=== PATIENT | male | born 1965 | race African-American/Black ===

== ENCOUNTER 2017-03-01 15:49 | Emergency (ER) | payer OTHER ==
[~2017-03-01] VITALS: Ht 160 cm; Wt 69.0 kg
[~2017-03-01 15:49] MED LIST: ACETAMINOPHEN-1 EAC1 PO; AFEDITAB CR30 MG PO; AUGMENTIN 875-1 EACH PO; CARDURA4 MG PO; CHLORTHALIDONE25 MG PO; COREG3.125 MG PO; HYDROCHLOROTHIA25 M2 PO; IMDUR 30 MG TAB30 M1 PO; LIPITOR 20 MG T20 M1 PO; MOBIC15 MG PO; NORVASC5 MG PO; NYAMYC15 GM TOP; OMEPRAZOLE40 MG PO; PLAVIX 75 MG TA75 M1 PO; TOPAMAX50 MG PO; VASOTEC10 MG PO; ZOLOFT25 MG PO
[2017-03-01] MEDS ORDERED: CLEOCIN HCL150 MG PO (16:11)
[2017-03-01] MEDS ORDERED: HYDROCODONE-AP1 EAC6 PO (16:11)
[2017-03-01 16:31] VITALS: BP 189/93
[2017-06-20] MEDS ORDERED: ACETAMINOPHEN-1 EAC1 PO (09:32)
[2017-10-04] MEDS ORDERED: HYDRALAZINE 2525 MG PO (12:35)
[2017-10-04] MEDS ORDERED: NICOTINE TRANSD21 M1 TRANSDERM (12:35)
[2017-10-04] MEDS ORDERED: ASPIR 8181 MG PO (12:36)
[2017-10-04] MEDS ORDERED: AMLODIPINE BESY10 MG PO (12:36)
[2017-10-11] MEDS ORDERED: ACETAMINOPHEN-1 EAC1 PO (21:03)
[2017-10-14] MEDS ORDERED: ASPIRIN325 PO (11:14)
[2017-10-14] MEDS ORDERED: PRINIVIL20 MG PO ×2 (11:15→11:43)
[2017-10-14] MEDS ORDERED: PLAVIX 75 MG TA75 M1 PO (11:42)
[2017-10-14] MEDS ORDERED: LIPITOR 20 MG T20 M1 PO (11:42)
[2017-10-14] MEDS ORDERED: NICOTINE TRANSD21 M1 TRANSDERM (11:42)
[2017-10-14] MEDS ORDERED: COREG3.125 MG PO (11:42)
[2017-10-14] MEDS ORDERED: AMLODIPINE BESY10 MG PO (11:42)
[2017-10-14] MEDS ORDERED: CHLORTHALIDONE25 MG PO (11:43)
[2017-10-14] MEDS ORDERED: ZOLOFT25 MG PO (11:43)
[2017-10-14] MEDS ORDERED: ACETAMINOPHEN-1 EAC1 PO (11:43)
== END 2017-03-01 16:32 | disposition home or self-care (01) ==
LOC: ER 15:49
DX: K04.7 Periapical abscess without sinus (principal); I10 Essential (primary) hypertension; E78.00 Pure hypercholesterolemia, unspecified; F17.210 Nicotine dependence, cigarettes, uncomplicated; Z95.811 Presence of heart assist device

== ENCOUNTER 2018-01-29 13:24 | Emergency (ER) | payer OTHER ==
[~2018-01-29] VITALS: Ht 160 cm; Wt 72.6 kg
--- NOTE | ~2018-01-29 | EKG ---
[place] [address] 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: WG : 1965 Requested By: Ebony Mays Order Number: [id number] MD: Rian Gardner Measurements Intervals [place] Rate: 46 P: 52 TN: 147 QRS: -38 QRSD: 107 T: 251 QT: 536 QTc: 469 Interpretive Statements Sinus bradycardia LVH with secondary repolarization abnormality, similar to prior Baseline wander in lead(s) I,aVL Compared to ECG 10/12/2017 06:58:42 Sinus rhythm no longer present Ventricular premature complex(es) no longer present Left anterior fascicular block no longer present Q waves no longer present Electronically Signed On 01-31-2018 11:07:09 FLOOR REFINISHER by Rian Gardner [email or web address] <ELECTRONICALLY SIGNED> By: Rian Gardner MD 01/31/18 1107 142 142 Rian Gardner MD /EPI
--- NOTE | ~2018-01-29 | HC ---
[facility] [place] [address] CONSULTATION Name: MINDI JONES Room #: DEP NATHANIEL Love#: [id number] Admission: 01/29/18 Attend Phys: Discharge: 01/29/18 Date of : 69 Report #: [id number] THIS REPORT FOR: //name// CC: Jacob Mays DATE OF SERVICE: 01/29/2018 HISTORY OF PRESENT ILLNESS: The patient is a 52-year-old man who came to the Emergency Department with symptoms of an increased left-sided facial droop and extremity weakness and tingling beginning about 2230 last night. The patient had a previous stroke about 7 months ago, which affected his left side and he was seen at that time by Dr. Arrieta. He states that he had a first stroke about a year ago, which only affected his speech temporarily, which resolved; however, the stroke 7 months ago left him with a persisting left facial weakness. He has gone back to work. The patient takes Plavix and Eliquis along with aspirin. An NIH score was 3 with weakness of the face, the left arm and the left leg. PAST MEDICAL HISTORY: The patient's past history is positive for hypertension and migraine as well as cardiac stents x 3. MEDICATIONS: Include amlodipine, Plavix, atorvastatin, carvedilol, lisinopril, codeine No. 3, sertraline, chlorthalidone. The chart indicates Eliquis, but I am not sure if that is correct. ALLERGIES: No known allergies. SOCIAL HISTORY: The patient uses cigarettes, but does not use alcohol. REVIEW OF SYSTEMS: The patient denies blurred vision, but states that he does have spots in front of his eyes. He is denying a headache at the present time, but states that he did have headache earlier. He denies chest pain. Denies runny nose or sore throat. Denies abdominal pain. Denies dysuria or hematuria. Denies joint pain. Denies rash. He states that he is under a lot of stress and is having sleep deprivation regarding his job. PHYSICAL EXAMINATION: VITAL SIGNS: Blood pressure 158/80, temperature 36.7, pulse 57. GENERAL APPEARANCE: On physical examination, the patient is a well-developed, well-nourished man, very pleasant and cooperative. NECK: Supple. EXTREMITIES: No pedal edema is noted. [address] [address] CONSULTATION Name: MINDI JONES Room #: DEP NATHANIEL Love#: [id number] Admission: 01/29/18 Attend Phys: Discharge: 01/29/18 Date of : 69 Report #: [id number] NEUROLOGIC: He is alert and oriented with normal memory. His speech is slightly dysarthric. He does speak with a [place] accent. He was born [place]. On cranial nerve testing, the pupils are equally round and reactive. Extraocular movements are full without nystagmus. Visual velasquez are full to confrontation. Facial sensation showed mild decreased appreciation to pin on the left forehead and chin was equal. On motor testing, the patient does have weakness of his lower face with flattened nasolabial fold and decreased excursion of the mouth. Tongue was normal. Motor testing reveals full power in his arms and legs. I could not detect any pronator drift. I could not detect any weakness of his arms distally or proximally or his legs distally or proximally. Sensation was intact to pin and vibration. Coordination testing revealed mildly clumsy rapid alternating movement test with his left hand. Sowgxw-hs-mbnw was done well. Kkem-fs-mniq was done well. Reflexes were 2+ and equal from side to side. The toes were downgoing. The gait was normal. The patient did have some mild difficulty with omoi-qn-hcew. The patient does have metal in his mandible after an accident at age 13 and he does not remember ever having an MRI scan. He believes that is because of the metal in his face. CT scan showed no acute changes. CT angiogram likewise showed no changes. The patient's weakness has resolved in the left-sided limbs. He does have persisting weakness of the face, which was equal to what it was before. With negative CT and CTA, it is felt that he did not have a new stroke, but rather that this is a recrudescence of his previous findings. The patient had no shaking of the limb or other symptoms that might suggest a focal seizure. I recommended that he take 2 days off from work and for him to return to the Emergency Department if he has any further neurologic issues. An EEG might be done if he does have further episodes to check for post-stroke focal seizure activity. By: 1725 [id number] Claudio Rajan MD /nt
[~2018-01-29 13:24] MED LIST changes: +AMLODIPINE BESY10 MG PO; +ASPIR 8181 MG PO; +ASPIRIN325 PO; +CLEOCIN HCL150 MG PO; +HYDRALAZINE 2525 MG PO; +HYDROCODONE-AP1 EAC6 PO; +NICOTINE TRANSD21 M1 TRANSDERM; +PRINIVIL20 MG PO
[2018-01-29 13:44] VITALS: BP 158/80
[2018-01-29 14:00] LABS: ABSOLUTE NEUTROPHILS 6.4 thou/uL (1.4-8.2); BASOPHILS 0.3 % (0.0-2.0); EOSINOPHILS 7.2 % (0.0-3.0); HEMATOCRIT 39.8 % (42.0-52.0); LYMPHOCYTES 25.3 % (24.0-44.0); MCHC 35.2 g/dL (28.0-37.0); MCV 85.4 fL (80.0-100.0); MONOCYTES 6.1 % (1.0-8.0); PLATELET COUNT 232 thou/uL (150-400); POLYS 61.1 % (36.0-66.0); RBC 4.66 mil/uL (4.50-6.00); RDW 13.9 % (10.5-14.5); WBC 10.4 thou/uL (4.0-11.0)
[2018-01-29 14:09] LABS: CALCIUM 8.7 mg/dL (8.5-10.1); CREATININE 1.1 mg/dL (0.7-1.3); POTASSIUM 3.4 mmol/L (3.5-5.1)
[2018-01-29 14:13] LABS: APTT 32.4 Seconds (24.5-32.8)
[2018-01-29 16:20] LABS: URINE BILIRUBIN NEGATIVE (Negative); URINE BLOOD 3+ (Negative); URINE CLARITY CLEAR; URINE COLOR YELLOW; URINE GLUCOSE-RANDOM* NEGATIVE (Negative); URINE KETONES NEGATIVE (Negative); URINE LEUKOCYTES NEGATIVE (Negative); URINE NITRITE NEGATIVE (Negative); URINE PROTEIN (DIPSTICK) NEGATIVE (Negative); URINE SPECIFIC GRAVITY <= 1.005 (1.005-1.035); URINE UROBILINOGEN 0.2 E.U./dl (0.2-1.0)
[2018-01-29 16:32] LABS: CASTS None Seen /LPF (None Seen); SQUAMOUS None Seen /LPF (0-3)
[2018-01-29 16:33] LABS: BACTERIA None Seen /HPF (None Seen); CRYSTALS None Seen /LPF (None Seen); URINE WBC 0-5 Rare /HPF (0-5)
[2018-01-30 01:38] LABS: POC CA IONIZED 4.8 mg/dL (4.5-5.3); POC CREATININE 1.1 mg/dL (0.6-1.3); POC HEMOGLOBIN 13.9 g/dL (14.0-18.0); POC POTASSIUM 3.6 mmol/L (3.5-5.1)
== END 2018-01-29 17:00 | disposition home or self-care (01) ==
LOC: ER 13:24
PROVIDERS: Student in an Organized Health Care Education/Training Program
DX: R53.1 Weakness (principal); R31.29 Other microscopic hematuria; F17.210 Nicotine dependence, cigarettes, uncomplicated; I10 Essential (primary) hypertension; G43.909 Migraine, unspecified, not intractable, without status migrainosus; Z95.5 Presence of coronary angioplasty implant and graft; Z86.73 Personal history of transient ischemic attack (TIA), and cerebral infarction without residual deficits

== ENCOUNTER 2018-07-10 08:06 | Emergency (ER) | payer OTHER ==
[~2018-07-10] VITALS: Ht 160 cm; Wt 69.4 kg
[2018-07-10 08:57] LABS: ABSOLUTE NEUTROPHILS 4.7 thou/uL (1.4-8.2); BASOPHILS 0.3 % (0.0-2.0); EOSINOPHILS 6.6 % (0.0-3.0); HEMATOCRIT 36.9 % (42.0-52.0); HEMOGLOBIN 12.6 gm/dL (14.0-18.0); LYMPHOCYTES 26.5 % (24.0-44.0); MCH 28.7 pg (26.0-34.0); MCHC 34.1 g/dL (28.0-37.0); MCV 84.3 fL (80.0-100.0); MONOCYTES 5.8 % (1.0-8.0); PLATELET COUNT 199 thou/uL (150-400); POLYS 60.8 % (36.0-66.0); RBC 4.38 mil/uL (4.50-6.00); RDW 13.3 % (10.5-14.5); WBC 7.7 thou/uL (4.0-11.0)
[2018-07-10 09:07] LABS: ANION GAP 10 mmol/L (7-16); BUN 14 mg/dL (7-18); CALCIUM 9.1 mg/dL (8.5-10.1); CHLORIDE 101 mmol/L (98-107); CO2 28 mmol/L (21-32); GLUCOSE 153 mg/dL (74-106); POTASSIUM 3.5 mmol/L (3.5-5.1); SODIUM 139 mmol/L (136-145)
[2018-07-10 09:17] LABS: ALBUMIN 3.4 g/dL (3.4-5.0); MAGNESIUM 1.7 mg/dL (1.8-2.4); SGOT 23 U/L (15-37); SGPT 29 U/L (30-65); TOTAL BILIRUBIN 0.4 mg/dL (<0.1-1.0); TOTAL PROTEIN 7.2 g/dL (6.4-8.2); TROPONIN-I <0.06 ng/mL (<0.06)
[2018-07-10 09:43] VITALS: BP 195/101
[2018-07-10 09:47] LABS: URINE BILIRUBIN NEGATIVE (Negative); URINE BLOOD 3+ (Negative); URINE CLARITY CLEAR; URINE COLOR YELLOW; URINE GLUCOSE-RANDOM* NEGATIVE (Negative); URINE KETONES NEGATIVE (Negative); URINE LEUKOCYTES NEGATIVE (Negative); URINE NITRITE NEGATIVE (Negative); URINE PROTEIN (DIPSTICK) 2+ (Negative); URINE SPECIFIC GRAVITY 1.025 (1.005-1.035); URINE UROBILINOGEN 0.2 E.U./dl (0.2-1.0)
[2018-07-10 09:55] LABS: BACTERIA None Seen /HPF (None Seen); CASTS None Seen /LPF (None Seen); CRYSTALS None Seen /LPF (None Seen); SQUAMOUS 0-3 Few /LPF (0-3)
[2018-07-10 09:56] LABS: URINE WBC 0-5 Rare /HPF (0-5)
--- NOTE | 2018-07-11 08:45 | EKG ---
[facility] [place] [address] ELECTROCARDIOGRAM REPORT Name: MINDI JONES Room #: NITISH Love#: [id number] ������������������ Admission: 07/10/18 ������������������ Attend Phys: Discharge: 07/10/18 ������������������ Date of : 69 Report #: [id number] ����������������������������������������������������������������� [id number] THIS REPORT FOR: //name// [facility] ED Test Date: 2018-07-10 Test Time: 08:35:10 Pat Name: MINDI JONES Department: Room: Gender: M Manager E Learning: phil martinez : 1965 Requested By: Fuentes Ovalle Order Number: [id number] MD: iRan Gardner Measurements Intervals [place] Rate: 56 P: 35 [place]: 140 QRS: -32 QRSD: 110 T: 243 QT: 483 QTc: 467 Interpretive Statements Sinus rhythm Multiple premature complexes, vent & supraven LVH with IVCD and secondary repol abnrm Anterior ST elevation, probably due to LVH Compared to ECG 01/29/2018 14:22:55 Electronically Signed On 07-11-2018 8:44:52 CDT by Rian Gardner [email or web address] ��������������������������������������������� <ELECTRONICALLY SIGNED> ���������������������������������������� By: Rian Gardner MD ��������������������������������������������� 07/11/18 0844 Rian Gardner MD /EPI
== END 2018-07-10 09:44 | disposition home or self-care (01) ==
LOC: ER 08:06
PROVIDERS: Emergency Medicine
DX: I10 Essential (primary) hypertension (principal); G43.909 Migraine, unspecified, not intractable, without status migrainosus; F17.210 Nicotine dependence, cigarettes, uncomplicated; Z86.73 Personal history of transient ischemic attack (TIA), and cerebral infarction without residual deficits; Z95.5 Presence of coronary angioplasty implant and graft

== ENCOUNTER 2018-09-25 07:57 | Emergency (ER) | payer OTHER ==
[~2018-09-25] VITALS: Ht 160 cm; Wt 68.0 kg
[2018-09-25 08:39] LABS: ABSOLUTE NEUTROPHILS 4.4 thou/uL (1.4-8.2); BASOPHILS 0.5 % (0.0-2.0); EOSINOPHILS 6.1 % (0.0-3.0); HEMATOCRIT 38.3 % (42.0-52.0); LYMPHOCYTES 28.2 % (24.0-44.0); MCH 28.2 pg (26.0-34.0); MCHC 33.9 g/dL (28.0-37.0); MCV 83.3 fL (80.0-100.0); PLATELET COUNT 228 thou/uL (150-400); POLYS 59.2 % (36.0-66.0); WBC 7.5 thou/uL (4.0-11.0)
[2018-09-25 08:41] LABS: CALCIUM 9.3 mg/dL (8.5-10.1); CREATININE 1.1 mg/dL (0.7-1.3); POTASSIUM 3.6 mmol/L (3.5-5.1)
[2018-09-25 08:49] LABS: TROPONIN-I 0.07 ng/mL (<0.06)
--- NOTE | 2018-09-25 10:55 | EKG ---
[facility] [place] [address] ELECTROCARDIOGRAM REPORT Name: MINDI JONES Room #: REG NATHANIEL Love#: [id number] Admission: 09/25/18 Attend Phys: Discharge: Date of : 69 Report #: [id number] THIS REPORT FOR: //name// [facility] ED Test Date: 2018-09-25 Test Time: 08:04:29 Pat Name: MINDI JONES Department: Room: Gender: M Trawl Net Maker: HELADIO : 1965 Requested By: Latanya Garcia Order Number: [id number] MD: Dayton Singh Measurements Intervals [place] Rate: 56 P: 41 [place]: 141 QRS: -39 QRSD: 108 T: 247 QT: 480 QTc: 464 Interpretive Statements Sinus rhythm Atrial premature complex LVH with secondary repolarization abnormality Anterior Q waves, possibly due to LVH Compared to ECG 07/10/2018 08:35:10 Atrial premature complex(es) now present premature ventricular complexes are no longer present Electronically Signed On 09-25-2018 10:54:56 CDT by Dayton Singh [email or web address] <ELECTRONICALLY SIGNED> By: Dayton Singh MD, [facility] 09/25/18 1054 0804 0804 Dayton Singh MD, [facility] /EPI
[2018-09-25 12:01] VITALS: BP 182/93
== END 2018-09-25 12:08 | disposition home or self-care (01) ==
LOC: ER 07:57
PROVIDERS: Emergency Medicine
DX: R07.89 Other chest pain (principal); I10 Essential (primary) hypertension; G43.909 Migraine, unspecified, not intractable, without status migrainosus; F17.210 Nicotine dependence, cigarettes, uncomplicated; Z86.73 Personal history of transient ischemic attack (TIA), and cerebral infarction without residual deficits; Z95.2 Presence of prosthetic heart valve

== ENCOUNTER 2018-12-02 17:56 | Inpatient (IN) | payer OTHER ==
[~2018-12-02] VITALS: Ht 160 cm; Wt 65.3 kg
[2018-12-02 18:37] LABS: ABSOLUTE NEUTROPHILS 6.9 thou/uL (1.4-8.2); BASOPHILS 0.4 % (0.0-2.0); EOSINOPHILS 1.9 % (0.0-3.0); HEMATOCRIT 39.7 % (42.0-52.0); HEMOGLOBIN 13.6 gm/dL (14.0-18.0); LYMPHOCYTES 21.8 % (24.0-44.0); MCH 28.3 pg (26.0-34.0); MCHC 34.1 g/dL (28.0-37.0); MCV 82.8 fL (80.0-100.0); PLATELET COUNT 213 thou/uL (150-400); POLYS 69.9 % (36.0-66.0); RDW 14.7 % (10.5-14.5); WBC 9.9 thou/uL (4.0-11.0)
[2018-12-02 18:41] LABS: CALCIUM 8.9 mg/dL (8.5-10.1); POTASSIUM 3.2 mmol/L (3.5-5.1)
[2018-12-02 18:49] LABS: TROPONIN-I 0.09 ng/mL (<0.06)
[2018-12-02 22:19] VITALS: BP 191/103
[2018-12-02 23:13] VITALS: BP 174/95
[2018-12-03 01:01] VITALS: BP 169/126
[2018-12-03 03:29] VITALS: BP 174/85
--- NOTE | 2018-12-03 05:27 | NUR ---
PT ARRIVED FROM ER AROUND 11PM LAST NIGHT. PT IS A&0X4. VSS EXCEPT BP WHICH WAS ELEVATED AT 190/103. ADMISSION ASSESSMENTS DONE, DR LAWS NOTIFIED ABOUT BP AND REQUEST FOR ADMISSION ORDERS. ONETIME ORDER OF CLONIIDINE WAS GIVEN FOR BP, SAID HE WOULD SEE PT IN THE AM SINCE HE WAS STABLE. PT COMPLAINED OF HEADACHE, TYELENOL GIVEN. PT IS SB WITH SLEEP; JAYESH 40S BEING THE MINIMUM. PT STATED THE BREATHING TX HE GOT IN THE ER MADE HIM FEEL A WHOLE LOT BETTER AND WOULD LIKE IF HE COULD BE D/C WITH SOME. PT DENIES CHEST PAIN JUST STATED CHEST TIGHTNESS. PT DENIED HAVING ADVANCE DIRECTIVES&DPOA; CASE MANAGEMENT CONSULTED. PT IS STABLE, BP IS TRENDING DOWN. WILL CONTINUE TO MONITOR PER POC.
[2018-12-03 08:08] VITALS: BP 178/23
--- NOTE | 2018-12-03 11:06 | EKG ---
[place] [address] [address] [place] [address] ELECTROCARDIOGRAM REPORT Name: MINDI JONES Room #: 212-P ADM IN M.R.#: [id number] Admission: 12/02/18 Attend Phys: Jacob Sow MD Discharge: Date of : 69 Report #: [id number] THIS REPORT FOR: //name// [facility] ED Test Date: 2018-12-02 Test Time: 18:05:30 Pat Name: MINDI JONES Department: Room: 212 Gender: M Video Manager: GUADALUPE : 1965 Requested By: Latanya Garcia Order Number: [id number] MD: Dayton Singh Measurements Intervals [place] Rate: 72 P: 36 OR: 156 QRS: -45 QRSD: 101 T: 220 QT: 470 QTc: 515 Interpretive Statements Sinus rhythm Left anterior hemiblock Poor R wave progression T-wave abnormality, consider ischemia Compared to ECG 09/25/2018 08:04:29 No significant change was found Electronically Signed On 12-03-2018 11:06:46 CDT by Dayton Singh [email or web address] <ELECTRONICALLY SIGNED> By: Dayton Singh MD, [facility] 12/03/18 1106 180 04 Dayton Singh MD, [facility] /EPI
[2018-12-03 16:16] VITALS: BP 186/135
[2018-12-03 18:45] VITALS: BP 168/108
--- NOTE | 2018-12-03 19:56 | NUR ---
ASSUMMED PT CARE AT APPROXIMATELY 0700. PT A&O X4. ASSESSMENT CHARTED. FALL PRECAUTIONS IN PLACE. PT DENIES HAVING CHEST PAIN. PT STATES HE HAS ACUTE PAIN. PT RECEIVED ANALGESICS FOR PAIN. PT STATED ANALGESICS HELPED RELIEVE PAIN. PT STATES HE HAS BEEN SOB ON EXERSION. PT'S O2 SAT STABLE. PT'S BP ELEVATED. PT'S K+ LOW. NOTIFIED FOR BP AND K+. STARTED MEDS FOR ELEVATED BP AND K+. BP DECREASED AFTER BP MEDS GIVEN. VITAL SIGNS STABLE. PT AMBULATES AD DESHAWN AND IS STEADY. PT EDUCATED ABOUT POC. PT STATED UNDERSTANDING AND DENIED HAVING FURTHER QUESTIONS AND CONCERNS. PT COMFORTABLE IN BED.
[2018-12-03 20:10] VITALS: BP 180/106
[2018-12-04 00:24] VITALS: BP 170/102
[2018-12-04 03:11] LABS: GLYCOHEMOGLOBIN (HGB A1C) 5.7 % (4.8-5.6)
[2018-12-04 04:45] VITALS: BP 155/98
[2018-12-04 05:00] LABS: CALCIUM 8.7 mg/dL (8.5-10.1); CREATININE 1.2 mg/dL (0.7-1.3); POTASSIUM 4.1 mmol/L (3.5-5.1)
--- NOTE | 2018-12-04 05:27 | NUR ---
ASSUMED PT CARE AT 1900. PT IS ALERT AND ORIENTED. NO SIGN OF DISTRESS NOTED. NO FAMILY AT BEDSIDE. ASSESSMENT COMPLETED AND CHARTED. DENIED AND. VITAL SIGNS STABLE WITH THE EXCEPTION OF ELEVATION OF BLOOD PRESSURE. SCHEDULED MEDS ADMINISTERED TO PT. DENIES ANY OTHER NEEDS AT THIS TIME.
[2018-12-04 07:14] VITALS: BP 173/109
--- NOTE | 2018-12-04 11:43 | 2DMMODE ---
[facility] [address] [place] [address] 2 D/M-MODE ECHOCARDIOGRAM Name: MINDI JONES Room #: 212-P ADM IN M.R.#: [id number] Admission: 12/02/18 Attend Phys: Gale Johnson Discharge: Date of : 69 Report #: [id number] THIS REPORT FOR: //name// APPROVED REPORT Study performed: 12/03/2018 12:02:18 EXAM: Comprehensive 2D, Doppler, and color-flow Echocardiogram Patient Location: In-Patient Room #: 212 Status: routine BSA: 1.75 HR: 64 bpm Rhythm: NSR Other Information Study Quality: Good Risk Factors: Cardiac Risk Factors: Hyperlipidemia, HTN Indications CAD Chest Pain Echo Enhancing Agent Indication: Endocardial border delineation Agent(s) / Amount(s) Used: Optison 2 cc 2D Dimensions LVEF(%): 26.00 (>50%) IVSd: 1.20 (7-11mm) LVOT Diam: 2.20 (18-24mm) PWd: 1.20 (7-11mm) Ascending Ao: 3.30 (22-36mm) LVDs: 4.70 (25-40mm) Left Ventricle Left ventricle is mildly dilated. There is global hypokinesis of the left ventricle. Mild concentric left ventricular hypertrophy. Left ventricular ejection fraction is severely decreased. LVEF is 25-30%. Severe diastolic dysfunction is present (restrictive filling). Right Ventricle The right ventricle is normal size. The right ventricular systolic function is normal. [facility] [address] [place] [address] 2 D/M-MODE ECHOCARDIOGRAM Name: MINDI JONES Room #: 212-P ADM IN M.R.#: [id number] Admission: 12/02/18 Attend Phys: Gale Johnson Discharge: Date of : 69 Report #: [id number] Atria Left atrium is moderately dilated. Right atrium is mildly dilated. Aortic Valve The aortic valve is normal in structure. Trace to mild aortic regurgitation. There is no aortic valvular stenosis. Mitral Valve The mitral valve is normal in structure. There is no mitral valve regurgitation noted. Tricuspid Valve The tricuspid valve is normal in structure. There is no tricuspid valve regurgitation noted. Pulmonic Valve The pulmonary valve is normal in structure. Mild pulmonic regurgitation. Great Vessels The aortic root is normal in size. The ascending aorta is normal in size. IVC is normal in size and collapses >50% with inspiration. Pericardium There is no pericardial effusion. Critical Notification Critical Value: No <Conclusion> Left ventricular ejection fraction is severely decreased. LVEF is 25-30%. Severe diastolic dysfunction Left atrium is moderately dilated. The aortic valve is normal in structure. Trace to mild aortic regurgitation, no stenosis. The mitral valve is normal in structure. No mitral valve regurgitation Pulmonary artery pressure could not be ascertained. There is no pericardial effusion. <ELECTRONICALLY SIGNED> By: Dayton Singh MD, FACC 12/04/18 1143 1143 1143 Dayton Singh MD, FACC /INF
--- NOTE | 2018-12-04 11:52 | EKG ---
[address] [employer] [place] [address] ELECTROCARDIOGRAM REPORT Name: MINDI JONES Room #: 212-P ADM IN M.R.#: [id number] Admission: 12/02/18 Attend Phys: Jacob Sow MD Discharge: Date of : 69 Report #: [id number] THIS REPORT FOR: //name// [facility] Test Date: 2018-12-04 Test Time: 07:09:37 Pat Name: MINDI JONES Department: Room: 212 P Gender: M Fixed Income Manager: Zuhair LEIVA : 1965 Requested By: Dayton Singh Order Number: [id number] MD: Dayton Singh Measurements Intervals [place] Rate: 46 P: 40 [place]: 143 QRS: -40 QRSD: 104 T: 269 QT: 539 QTc: 472 Interpretive Statements Sinus bradycardia Left anterior fascicular block LVH with secondary repolarization abnormality Anteroseptal infarct, old Compared to ECG 12/02/2018 18:05:30 No significant change was found Electronically Signed On 12-04-2018 11:51:50 CDT by Dayton Singh [email or web address] <ELECTRONICALLY SIGNED> By: Dayton Singh MD, [facility] 12/04/18 1151 0709 0709 Dayton Singh MD, [facility] /EPI
[2018-12-04 11:53] VITALS: BP 166/114
[2018-12-04 15:57] VITALS: BP 177/123
--- NOTE | 2018-12-04 17:25 | NUR ---
ASSUMED CARE AT SHIFT CHANGE, ALERT AND ORIENTED X4. C/O HEADACHE AND REFUSED TYLENOL. SA AND BRADYCARDIA 38-62/ MIN, BP ELEVATED THROUGH OUT THE SHIFT, MEDICATED PER SCHEDULED MEDS AND DR FORREST ALBERTS, AND WAITING FOR A CALL BACK.
[2018-12-04 20:15] VITALS: BP 172/99
[2018-12-05] VITALS (10 sets, daily range): BP systolic 152–181; BP diastolic 93–119
--- NOTE | 2018-12-05 05:27 | NUR ---
ASSUMED PT CARE AT 1900. NO SIGN OF DISTRESS NOTED IN PT. PT IS ALERT AND AND ORIENTED, DENIES ANY PAIN. VITAL SIGNS STABLE WITH THE EXCEPRION OF ELEVATED BLOOD PRESSURE. PHYSICIAN NOTIFIED. BP MEDS AADMINISTERED TO PT. PT IS NPO. PT IS SCHEDULED FOR A HEART CATH. NO COMPLAINTS OF CHEST PAIN. DENIES ANY FURTHER NEEDS AT THIS TIME.
--- NOTE | 2018-12-05 12:56 | HC ---
[facility] [place] [address] CONSULTATION Name: MINDI JONES Room #: 212-P [facility] IN M.R.#: [id number] Admission: 12/02/18 Attend Phys: Jacob Sow MD Discharge: Date of : 69 Report #: [id number] THIS REPORT FOR: //name// CC: Jacob Sow REASON FOR CONSULTATION: Chest pain. HISTORY OF PRESENT ILLNESS: The patient is a nice gentleman with longstanding hypertension and a mixed ischemic and hypertensive cardiomyopathy. He has undergone prior stenting of the LAD and circumflex arteries. He now presents with a one month history of progressive chest pain with shortness of breath. He originally thought that this was related to his work place. 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 This has also occurred outside the workplace with activity such as walking within his house. He presented to the Emergency Department after using his albuterol inhaler without relief. He also has tried nitroglycerin with some mild improvement, although not complete relief. He is now pain free. He denies orthopnea or paroxysmal nocturnal dyspnea. No history of near syncope or syncope. MEDICATIONS: Include amlodipine 10 mg daily, Plavix 75 mg daily, atorvastatin 80 mg daily, carvedilol 3.125 mg twice daily, lisinopril 20 mg twice daily, Sertraline 25 mg daily. PAST MEDICAL HISTORY: Medical records have been reviewed and include a history of coronary stenting, moderate cardiomyopathy, hypertension, hypertensive stroke, history of migraines. SOCIAL HISTORY: He is an ongoing smoker. He is . FAMILY HISTORY: Unremarkable for premature coronary disease. REVIEW OF SYSTEMS: All systems negative except as that noted above. PHYSICAL EXAMINATION: GENERAL: A pleasant gentleman who is alert and in no distress. VITAL SIGNS: Blood pressure is 170/85, heart rate of 65 and regular, respirations unlabored at 18. HEENT: There are neither xanthelasma, subcutaneous xanthomata, oral mucosal or digital cyanosis or kyphoscoliosis present. CHEST: Clear to auscultation and percussion. CARDIAC: Regular rate and rhythm, with normal S1, S2. No murmurs or rubs. ABDOMEN: Soft and nontender. EXTREMITIES: Without cyanosis, clubbing or edema. Radial pulses are 2+. NEUROLOGIC: He is alert with a nonfocal exam. [facility] [address] [place] [address] CONSULTATION Name: MINDI JONES Room #: 212-P [facility] IN .R.#: [id number] Admission: 12/02/18 Attend Phys: Jacob Sow MD Discharge: Date of : 69 Report #: [id number] LABORATORY DATA: EKG sinus rhythm with leftward axis, LVH, anterolateral T-wave inversion. Sodium 137, potassium 3.2, creatinine 1.1, glucose 154. Troponin 0.9. Cholesterol 200, LDL 132. White count 9.9, hemoglobin 13, hematocrit 39 and platelet count 213. Chest x-ray is normal. IMPRESSION: 1. Chest pain, suspicious for unstable angina. 2. Nonischemic cardiomyopathy. 3. Hypertension. 4. Dyslipidemia. 5. Tobacco dependency. RECOMMENDATIONS: 1. Continued efforts towards aggressive risk factor modification including aggressive blood pressure control. 2. High intensity statin therapy. 3. Coronary angiography. I have outlined the angiographic procedure in detail to the patient. I have outlined its risks as well as the risks associated with the possible percutaneous intervention. After a thorough discussion of the procedure, its risks and alternatives and after answering his questions, he is agreeable to proceeding. Thank you for asking me to participate in his care. <ELECTRONICALLY SIGNED> By: Dayton Singh MD, FACC 12/05/18 1256 1038 1153 Dayton Singh MD, FACC /nt
--- NOTE | 2018-12-05 18:01 | NUR ---
ASSUMED CARE AT 0700, ASSESMENT CHARTED, AND AFEBRILE. BP ELEVATED THROUGH OUT THE DAY AND MD IS AWARE. HEART CATHED TODAY, RT [facility] SITE D/C/I. SEE POST CATH FLOW SHEET. AND WILL CONTINUE WITH POC.
[2018-12-06 00:35] VITALS: BP 147/98
[2018-12-06 04:53] LABS: CALCIUM 8.5 mg/dL (8.5-10.1); CREATININE 1.1 mg/dL (0.7-1.3); POTASSIUM 4.9 mmol/L (3.5-5.1)
[2018-12-06 04:57] VITALS: BP 170/96
--- NOTE | 2018-12-06 05:33 | NUR ---
ASSUMED PT CARE AT 1900. PT IS ALERT AND ORIENTED. NO SIGN OF DISTRESS NOTED IN PT. PT IS STABLE. COMPLETED HEART CATH. NO SIGN OF DISTRESS NOTED IN PT. ASSESSMENT COMPLETED AND DOCUMENTED. DENIES ANY PAIN. NO HEMATOMA OR BLEEDING. DENIES ANY FURTHER NEEDS AT THIS TIME.
[2018-12-06 07:45] VITALS: BP 173/105
[2018-12-06] MEDS ORDERED: BENICAR40 MG PO (09:14)
[2018-12-06] MEDS ORDERED: IMDUR 60 MG TAB60 M1 PO (09:14)
[2018-12-06] MEDS ORDERED: ALDACTONE50 MG PO (09:14)
[2018-12-06] MEDS ORDERED: CARVEDILOL25 MG PO (09:14)
[2018-12-06 11:18] VITALS: BP 131/85
[2018-12-06] MEDS ORDERED: APAP W/CODEINE1 TA2 PO (12:40)
[2018-12-06] MEDS ORDERED: CHLORTHALIDONE25 MG PO (12:41)
[2018-12-06 12:50] VITALS: BP 131/85
--- NOTE | 2018-12-06 13:12 | NUR ---
ASSUMED CARE AT SHIFT CHANGE, ALERT AND ORIENTED X4. DENIES ANY CP. BP ELEVATED, AM BP MEDS GIVING AND BP DOWN TO NORMAL LIMITS. DISCHARGE AND MEDICATION INSTRUCTIONS GIVEN TO PATIENT. PATIENT DICAHRGED HOME.
--- NOTE | 2018-12-07 10:17 | CATHLAB ---
[facility] [address] [place] [address] INVASIVE PROCEDURE REPORT Name: MINDI JONES Room #: 212-P DIS IN M.R.#: [id number] Admission: 12/02/18 Attend Phys: Gale Johnson Discharge: 12/06/18 Date of : 69 Report #: [id number] THIS REPORT FOR: //name// APPROVED REPORT Study performed: 12/05/2018 12:25:22 Patient Details Patient Status: In-Patient Room #: The patient is a 53 year-old male Event Personnel Adam Padilla Fuel Assembler, Spencer Rothman RN, Jae Lopes RTR Scrub, Shanel Ngo RTR Monitor, Jacob Ying Monitor Procedures Performed Art Access - R femoral artery* Left Heart Cath w/or w/o Coronaries [id number] [facility] [address] Initial Mod Sed Same Phys/QHP Gr5y 041590 35907 Mod Sed Same Phys/QHP Ea 152315 FFR 9861365 FFR Hemostasis w/ Mynx, supervision of conscious sedation Indication Chest pain Risk Factors Coronary Artery DiseaseHypertension, Tobacco History () Procedure Narrative The Right Groin^ was infiltrated with 1% Lidocaine subcutaneous anesthesia. A PINNACLE 4FR Sheath #[id number] sheath was inserted into the RFA^. Coronary angiography was performed using coronary diagnostic catheters. The right coronary system was accessed and visualized with a JR4 catheter. The left coronary system was accessed and visualized with a JL 5.0 #[id number] catheter. The left ventricle was accessed and visualized with a pigtail catheter. Left ventricular/Aortic Valve gradient assessed via catheter pullback. Closure device was deployed with a 6 Fr MYNXGRIP 6/7F #[id number]. The patient tolerated the procedure well and there were no complications associated with the procedure. There was no hematoma. Intraoperative Conscious Sedation Sedation start time: 1220 Case end Time: 1318 Versed 2 mg [facility] [address] [place] [address] INVASIVE PROCEDURE REPORT Name: MINDI JONES Room #: 212-P DIS IN M.R.#: [id number] Admission: 12/02/18 Attend Phys: Gale Johnson Discharge: 12/06/18 Date of : 69 Report #: [id number] Fluoro Time: 12.55 minutes Dose: DAP 16781.70 cGycm2 1630 mGy Contrast Type and Amount: Omnipaque 150 ml Coronary Angiography The patient's coronary anatomy is right dominant. Diagnostic Cath Left Main Normal origin and moderate to large caliber bifurcates left anterior descending left circumflex. Luminal irregularities are noted but no high-grade lesions are present LAD Moderate caliber type II vessel which proximally beyond the first diagonal branch has an eccentric lesion of approximately 75%. The vessel then continues in the anterior interventricular status sulcus with a distal third has a long stent in place with 75% in-stent restenosis. As a size mismatch proximal and distal to the eccentric 75% proximal mid LAD lesion. Diagonal 1 Small-caliber vessel with moderate in irregularities noted in its midportion but the vessel is under 1 mm diameter at this site Diagonal 2 Insignificant caliber highly diseased vessel Circumflex Small caliber nondominant vessel giving rise to an early marginal branch which is free of high-grade disease and continues on posterior lateral wall branch with is a stent pleasant. His mild irregularities within the stent noted and then the vessel terminates as a small trifurcating vessel posterior aspect the left ventricle One view it appears to be eccentric and high-grade in the other views it appears to be only moderate. There is diffuse mild to moderate irregularities throughout the entire course of the circumflex. OM1 Small caliber vessel diffuse irregularity and a high grade 75% lesion in its proximal third. The vessel is under 1 mm in diameter at this date Right Coronary Moderate caliber vessel of normal origin quite tortuous course with mild to moderate irregularities in its proximal and mid portions. It gives rise to RV marginal branches which are small and diseased. At the crux of the heart and gives rise to a posterior descending artery and then continues on to posterior wall branch which is small in caliber and has diffuse disease in it with no focal lesions and the vessel's proximal third which appears to be under 1 mm in diameter R PDA Small to moderate caliber vessel with moderate irregularities [facility] [address] [place] [address] INVASIVE PROCEDURE REPORT Name: MINDI JONES Room #: 212-P DIS IN M.R.#: [id number] Admission: 12/02/18 Attend Phys: Gale Johnson Discharge: 12/06/18 Date of : 69 Report #: [id number] beyond the midportion it tapers rapidly with high-grade lesion in the continues as a small caliber vessel towards the apex Left Ventriculography Left Ventriculography was not performed. IVUS Fractional Flow [place] was performed on the left anterior descending and left circumflex vessel. A standard Alec left 4 curved Guide Catheter was used to engage the left ostium. A FFR wire was used. IVUS Findings 1. Proximal LAD lesion had an IFR of 90 2. Proximal left circumflex before the stent had an IFR of 98 Hemodynamics The aortic pressure is 163/96 mmHg with a mean of 85 mmHg. The left ventricular pressure is 177/7 mmHg with a mean of mmHg. The left ventricular end diastolic pressure is 29 mmHg. PCI Technique Lesion A LAUNCHER 6FR JL4 #[id number] Guide Catheter was used to engage the ostium. A Aeris Pressure Wire 175 cm [id number] Interventional Guidewire was used to cross the lesion. BALLOON DILATION LAD Pre 1.0 and Post .90 PCI Technique Lesion The lesion stenosis prior to intervention was left anterior descending and left circumflex % with ELVIS standard Alec left 4 curved flow. A left Guide Catheter was used to engage the ostium. A FFR wire Interventional Guidewire was used to cross the lesion. BALLOON DILATION A Balloon catheter 1. Proximal LAD lesion had an IFR of 90 2. Proximal left circumflex before the stent had an IFR of 98 was inserted and inflated up to letty for seconds. PCI Technique Lesion 2 A LAUNCHER 6FR JL4 #[id number] Guide Catheter was used to engage the ostium. A Aeris Pressure Wire 175 cm [id number] Interventional Guidewire was used to cross the lesion. [facility] [address] [place] [address] INVASIVE PROCEDURE REPORT Name: MINDI JONES Room #: 212-P DIS IN M.R.#: [id number] Admission: 12/02/18 Attend Phys: Jacob DumontGale Hickey Discharge: 12/06/18 Date of : 69 Report #: [id number] Balloon Dilation CIRC Pre 1.0 and Post .99 Conclusion 1. Coronary disease multivessel with severe proximal and distal LAD lesion 2. Abnormal fractional flow reserve study consistent with above 3. Abnormal with dynamic with elevated left ventricular end-diastolic pressures Recommendations Cardiac Risk Reduction Program 1. I'm going to discuss the case with surgery and have cardiothoracic surgery evaluate patient's that vessel for long-term benefits. The issue of the significant mismatch between the proximal portion of the mid LAD and the portion immediately after the stenosis is significant at deploying a stent and tapering appropriately for good long-term results. The addition of a stent in this portion would render subsequent bypass quite difficult and challenging if possible at all and in view of this we'll obtain surgical opinion prior to any percutaneous vascularization. If surgically option is deemed reasonable by cardiothoracic surgery then we'll proceed that the mode but if not then we will proceed with percutaneous revascularization with stenting of the proximal mid lesion and cutting balloon to the restenosis distal LAD stent <ELECTRONICALLY SIGNED> By: Adam Padilla MD 12/07/187 16 Adam Padilla MD /INF
--- NOTE | 2018-12-09 12:23 | D ---
[facility] [place] [place] [address] DISCHARGE SUMMARY Name: MINDI JONES Room #: 212-P [facility] IN M.R.#: [id number] Admission: 12/02/18 Attend Phys: Jacob Sow MD Discharge: 12/06/18 Date of : 69 Report #: [id number] THIS REPORT FOR: //name// CC: Jacob Sow FINAL DIAGNOSES: 1. Coronary artery disease. 2. Hypertension. 3. Unstable angina. 4. Nonischemic cardiomyopathy. 5. Dyslipidemia. 6. Tobacco abuse. 7. Chronic migraines. HOSPITAL COURSE: The patient was admitted with chest pain and unstable angina. He was taken to the cardiac catheterization technologist by Dr. Padilla. This revealed LAD lesion. It was not amenable to stent. Please see his separately dictated report and progress notes. Cardiothoracic Surgery assessed him and recommended medical treatment at this time. Blood pressure medications were adjusted. He was given education and counseling on smoking cessation. PHYSICAL EXAMINATION: On the day of discharge: GENERAL: He was awake and alert, walking in the halls without incident. VITAL SIGNS: Temperature 35.9, pulse 53, respirations 18, blood pressure 131/85, O2 sat 99% on room air. LUNGS: Clear. HEART: Regular. ABDOMEN: Soft, normoactive bowel sounds. EXTREMITIES: No edema. DISPOSITION: To be discharged home with low sodium cardiac diet. Activity as tolerated. He is to remain off work until he follows up with Dr. Padilla on 12/12/2017. MEDICATIONS: Imdur 60 mg, Coreg 25 mg twice a day, Benicar 40 mg, Aldactone 50 mg, Tylenol No. 3 as needed, chlorthalidone 25 mg, Norvasc 10 mg, aspirin 325 mg, Plavix 75 mg, Lipitor 80 mg, and Zoloft 25 mg. <ELECTRONICALLY SIGNED> By: Jacob Sow MD 12/09/18 1223 1251 1342 Jacob Sow MD /nt
--- NOTE | 2018-12-13 13:07 | HC ---
[facility] [place] [place] [address] CONSULTATION Name: MINDI JONES Room #: 212-P [facility] IN M.R.#: [id number] Admission: 12/02/18 Attend Phys: Jacob Sow MD Discharge: 12/06/18 Date of : 69 Report #: [id number] THIS REPORT FOR: //name// CC: Jacob Sow DATE OF SERVICE: 12/05/2018 We were asked by Dr. Padilla to see the patient. HISTORY OF PRESENT ILLNESS: The patient is a 53-year-old admitted with shortness of breath. 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 The patient also is a longtime smoker. The patient states he is short of breath at work but he also has episodes of shortness of breath at rest. There is no history of angina, however. We note that the patient had cardiac catheterization today that shows trivial disease in the right coronary. The circumflex was a stent and according to Dr. Padilla, FFR is negative. The LAD has a step-like lesion prior to a long stent and FFR was positive at 90. Left ventricular function by echo was reduced with an ejection fraction approximately 25%. PAST MEDICAL HISTORY: Also significant for hypertension and elevated cholesterol. As mentioned, the patient is a longtime smoker who continues to do so. The patient has had 3 stents in the past, 2 in [place] and the most recent by Dr. Padilla inn 2016. The patient states he is not taking Plavix at home currently. HOME MEDICATIONS: However, includes Norvasc, Plavix, Lipitor, Coreg, lisinopril, Zoloft, aspirin. ALLERGIES: None known. SOCIAL HISTORY: The patient is a smoker, works at [employer], is , has custody of children. FAMILY HISTORY: Not contributory. REVIEW OF SYSTEMS: CONSTITUTIONAL: Negative for fever or chills. EYES: Negative for eye pain or vision change. HEENT: Negative for rhinorrhea, sore throat. RESPIRATORY: As mentioned, the patient denies cough and sputum production. CARDIAC: As mentioned. The patient denies angina or palpitations. GASTROINTESTINAL: Denies nausea, vomiting, abdominal pain. [facility] [place] [place] [address] [place] [address] CONSULTATION Name: MINDI JONES Room #: 212-P [facility] IN M.R.#: [id number] Admission: 12/02/18 Attend Phys: Jacob Sow MD Discharge: 12/06/18 Date of : 69 Report #: [id number] GENITOURINARY: Denies burning, frequency, or blood. MUSCULOSKELETAL: Denies bone and joint problems. SKIN: Denies rash or infection. NEUROLOGIC: Denies motor or sensory dysfunction. ENDOCRINE: Denies goiter or tremor. PHYSICAL EXAMINATION: GENERAL: The patient is lying in bed after cardiac catheterization. The patient seems comfortable. He seems to be a mesomorphic in reasonable health. VITAL SIGNS: Temperature 36.1, pulse rate 50, blood pressure 161/114, pulse ox 98 on room air, respiratory rate 18. HEENT: Normocephalic. Pupils are round, equal. No arcus. No icterus. NECK: No mass, no bruit. CHEST: Clear. HEART: Rhythm regular. ABDOMEN: Soft. EXTREMITIES: No obvious clubbing, cyanosis or edema. No obvious saphenous vein problems. I reviewed the cardiac catheterization with Dr. Padilla, and discussed it in view of the patient's symptoms. The patient does have largely respiratory symptoms, although ejection fraction is reduced. Circumflex does not appear to be significant in terms of FFR and LAD even if significant is followed by a long stent, which would make placement of the MARIANNE at least difficult if not quite distal. The right coronary as mentioned has trivial disease. In total, I would support maximum medical management and potential stent placement if that were thought to be reasonable anatomically for that a step-like LAD lesion. Also, I would focus on afterload reduction with the patient being hypertensive like this and ejection fraction being low, this may be beneficial. The patient seems to be eager to go home at this point and is not particularly eager to pursue surgery. It is a privilege to participate in this challenging patient's care. Thank you for the consult. <ELECTRONICALLY SIGNED> By: Gilberto Smith MD 12/13/18 1307 1545 0138 Gilberto Smith MD /nt
--- NOTE | 2018-12-26 18:50 | H ---
[facility] [place] [address] HISTORY AND PHYSICAL Name: MINDI JONES Room #: 212-P [facility] IN M.R.#: [id number] Admission: 12/02/18 Attend Phys: Jacob Sow MD Discharge: 12/06/18 Date of : 69 Report #: [id number] THIS REPORT FOR: //name// CC: Jacob Sow DATE OF SERVICE: 12/02/2018 CHIEF COMPLAINT: This is a 53-year-old male with shortness of breath. HISTORY OF PRESENT ILLNESS: This is a patient with shortness of breath that really has been progressing with a chest tightness and he is having difficulty at work now because of this and it became so extreme that he came to the Emergency Room late last night. At that time, troponin was mildly elevated as was his BNP and he at that point was admitted, but he has been having chest tightness, dyspnea and uncomfortableness off and on now for a while. PAST MEDICAL HISTORY: Noteworthy for history of hypertension. He has had a left-sided stroke, but has fully recovered. He has had three previous cardiac stents. He has had some traumatic injuries in the past as well. MEDICATIONS: List includes sertraline, Plavix, atorvastatin, aspirin, amlodipine, lisinopril, and carvedilol. FAMILY HISTORY: Noncontributory. 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 Apparently, he also continues to smoke. REVIEW OF SYSTEMS: Otherwise, negative. PHYSICAL EXAMINATION: GENERAL: Shows him to be in no distress. He is essentially lying nearly flat. VITAL SIGNS: Show some elevated blood pressure at times through the night. HEENT: Otherwise, negative. NECK: Supple, without thyromegaly or adenopathy. CHEST: Clear with a dry cough. CARDIOVASCULAR: Showed a regular rate and rhythm without murmur. ABDOMEN: Soft and nontender, without hepatosplenomegaly. EXTREMITIES: Negative. ASSESSMENT: 1. This is a 53-year-old male with findings consistent with a cardiac origin for his dyspnea and whether this represents angina and associated dyspnea is not clear. It is also possible and probably most likely that this is related to poorly controlled hypertension. 2. Hyperlipidemia. [facility] [address] [place] [address] HISTORY AND PHYSICAL Name: MINDI JONES Room #: 212-P [facility] IN [facility].#: [id number] Admission: 12/02/18 Attend Phys: Jacob Sow MD Discharge: 12/06/18 Date of : 69 Report #: [id number] 3. Chronic obstructive pulmonary disease. PLAN: Admission. Serial enzymes, cardiac evaluation and probably will need a stress test in the near future. <ELECTRONICALLY SIGNED> By: Jerod Arora MD 12/26/18 1850 1021 1034 Jerod Arora MD /nt
== END 2018-12-06 13:33 | disposition home or self-care (01) | DRG 250 ==
LOC: ER 17:56 → 2N 21:40 → EROBS 21:40 → 2N 23:08
PROVIDERS: Emergency Medicine; Internal Medicine; ADMIT Internal Medicine Geriatric Medicine
DX: I25.110 Atherosclerotic heart disease of native coronary artery with unstable angina pectoris (principal); I50.23 Acute on chronic systolic (congestive) heart failure; I42.8 Other cardiomyopathies; E78.5 Hyperlipidemia, unspecified; J44.9 Chronic obstructive pulmonary disease, unspecified; I11.0 Hypertensive heart disease with heart failure; G43.909 Migraine, unspecified, not intractable, without status migrainosus; Z86.73 Personal history of transient ischemic attack (TIA), and cerebral infarction without residual deficits; Z95.5 Presence of coronary angioplasty implant and graft; Z71.6 Tobacco abuse counseling; Z82.49 Family history of ischemic heart disease and other diseases of the circulatory system; Z79.899 Other long term (current) drug therapy
CPT/HCPCS: 10081

== ENCOUNTER 2019-01-27 11:18 | Inpatient (IN) | payer OTHER ==
[2019-01-27] VITALS (10 sets, daily range): BP systolic 129–180; BP diastolic 69–130
[~2019-01-27] VITALS: Ht 160 cm; Wt 68.0 kg
[~2019-01-27 11:18] MED LIST changes: +ALDACTONE50 MG PO; +APAP W/CODEINE1 TA2 PO; +BENICAR40 MG PO; +CARVEDILOL25 MG PO; +IMDUR 60 MG TAB60 M1 PO
[2019-01-27 11:57] LABS: ABSOLUTE NEUTROPHILS 5.6 thou/uL (1.4-8.2); BASOPHILS 0.2 % (0.0-2.0); HEMATOCRIT 40.4 % (42.0-52.0); HEMOGLOBIN 13.6 gm/dL (14.0-18.0); LYMPHOCYTES 9.2 % (24.0-44.0); MCHC 33.5 g/dL (28.0-37.0); MCV 83.7 fL (80.0-100.0); PLATELET COUNT 145 thou/uL (150-400); POLYS 83.6 % (36.0-66.0); RBC 4.83 mil/uL (4.50-6.00); RDW 15.1 % (10.5-14.5); WBC 6.7 thou/uL (4.0-11.0)
[2019-01-27 12:04] LABS: CALCIUM 8.8 mg/dL (8.5-10.1); CREATININE 1.4 mg/dL (0.7-1.3); POTASSIUM 3.4 mmol/L (3.5-5.1)
[2019-01-27 12:14] LABS: ALBUMIN 3.4 g/dL (3.4-5.0); TOTAL BILIRUBIN 0.7 mg/dL (<0.1-1.0); TOTAL PROTEIN 7.8 g/dL (6.4-8.2); TROPONIN-I 0.18 ng/mL (<0.06)
--- NOTE | 2019-01-27 15:15 | 2DMMODE ---
[facility] [address] [place] [address] 2 D/M-MODE ECHOCARDIOGRAM Name: MINDI JONES Room #: 200-I ADM IN .R.#: [id number] Admission: 01/27/19 Attend Phys: Benja Sheehan, Discharge: Date of : 69 Report #: [id number] THIS REPORT FOR: //name// APPROVED REPORT Study performed: 01/27/2019 13:42:32 EXAM: Comprehensive 2D, Doppler, and color-flow Echocardiogram Patient Location: ER Status: routine BSA: 1.71 HR: 50 bpm BP: 133/85 mmHg Rhythm: Bradycardia Other Information Study Quality: Good Indications Chest Pain Hx: ISCM, recent CAD with PCI in November. HTN, HLP, CVA, tobacco abuse. 2D Dimensions RVDd: 36.94 mm IVSd: 12.19 (7-11mm) LVOT Diam: 22.39 (18-24mm) LVDd: 61.25 mm PWd: 13.37 (7-11mm) Ascending Ao: 35.13 (22-36mm) LVDs: 53.66 (25-40mm) Aortic Root: 34.79 mm Volumes Left Atrial Volume (Systole) Single Plane 4CH: 62.54 mL Single Plane 2CH: 66.24 mL LA ESV Index: 40.00 mL/m2 Aortic Valve AoV Peak Rio.: 1.37 m/s AO Peak Gr.: 7.51 mmHg LVOT Max P.78 mmHg LVOT Max V: 0.67 m/s TRICIA Vmax: 1.92 cm2 Mitral Valve E/A Ratio: 2.5 [facility] [address] [place] [address] 2 D/M-MODE ECHOCARDIOGRAM Name: MINDI JONES Room #: 200-I ADM IN ..#: [id number] Admission: 01/27/19 Attend Phys: Benja Sheehan, Discharge: Date of : 69 Report #: [id number] MV Decel. Time: 200.23 ms MV E Max Rio.: 0.84 m/s MV A Rio.: 0.33 m/s MV PHT: 58.07 ms IVRT: 129.18 ms Pulmonary Valve PV Peak Rio.: 1.10 m/s PV Peak Gr.: 4.86 mmHg Pulmonary Vein P Vein S: 0.27 m/s P Vein A: 0.23 m/s P Vein D: 0.66 m/s P Vein A Dur.: 120.0 msec P Vein S/D Ratio: 0.41 Tricuspid Valve RAP Estimate: 5.00 mmHg Left Ventricle Left ventricle is mild to moderately dilated. There is global hypokinesis. Mild concentric left ventricular hypertrophy. Left ventricular systolic function is severely decreased. LVEF is 20-25%. Severe diastolic dysfunction is present (restrictive filling). Right Ventricle The right ventricle is normal size. The right ventricular systolic function is normal. Atria Left atrium is moderately dilated. The right atrium size is normal. Aortic Valve The aortic valve is normal in structure. Trace aortic regurgitation. There is no aortic valvular stenosis. Mitral Valve The mitral valve is normal in structure. There is no mitral valve regurgitation noted. No evidence of mitral valve stenosis. Tricuspid Valve The tricuspid valve is normal in structure. There is no tricuspid valve regurgitation noted. Unable to assess PA pressure. Pulmonic Valve The pulmonary valve is normal in structure. Trace pulmonic regurgitation. [facility] [address] [place] [address] 2 D/M-MODE ECHOCARDIOGRAM Name: MINDI JONES Room #: 200-I ADM IN M.R.#: [id number] Admission: 01/27/19 Attend Phys: Benja Sheehan, Discharge: Date of : 69 Report #: [id number] Great Vessels The aortic root is normal in size. The ascending aorta is normal in size. IVC is normal in size and collapses >50% with inspiration. Pericardium There is no pericardial effusion. <Conclusion> Left ventricle is mild to moderately dilated. LVEF is 20-25%. There is global hypokinesis. Left atrium is moderately dilated. The aortic valve is normal in structure. Trace aortic regurgitation. The mitral valve is normal in structure. The tricuspid valve is normal in structure. There is no tricuspid valve regurgitation noted. Unable to assess PA pressure. The pulmonary valve is normal in structure. Trace pulmonic regurgitation. There is no pericardial effusion. <ELECTRONICALLY SIGNED> By: Adam Padilla MD 01/27/191513 13 13 dAam Padilla MD /INF
--- NOTE | 2019-01-27 18:53 | NUR ---
TO UNIT BY BED FROM ARCHITECTURAL DRAFTSPERSON AT 1700, REPORT FROM SWATI KIDD. VSS WITH HTN. ORDER RECEIVED FROM DR. QUEZADA. HE REFUSES BEDREST ORDERS. ALTERNATELY C/O BEING HOT AND THEN COLD. BECOMES ANXIOUS, HYPERVENTILATES, C/O SOA. DR. QUEZADA CALLED, ORDER RECEIVED FOR XANAX AND LASIX. VS NOT COMPLETED D/T HE PULLS OFF ALL EQUIPMENT. GROIN SITE REMAINS SOFT, CDI.
[2019-01-28] VITALS: BP 147/72
[2019-01-28 00:35] VITALS: BP 146/72
[2019-01-28 03:28] LABS: HEMATOCRIT 42.5 % (42.0-52.0); HEMOGLOBIN 14.3 gm/dL (14.0-18.0); MCH 28.1 pg (26.0-34.0); MCHC 33.6 g/dL (28.0-37.0); MCV 83.7 fL (80.0-100.0); RBC 5.07 mil/uL (4.50-6.00); RDW 15.1 % (10.5-14.5); WBC 6.3 thou/uL (4.0-11.0)
[2019-01-28 03:38] VITALS: BP 146/72
[2019-01-28 03:45] LABS: CHOLESTEROL 177 mg/dL (<200); HDL CHOLESTEROL 43 mg/dL (>40); LDL CHOLESTEROL 110 mg/dL (<100); TC:HDL 4.1 Ratio (Not establshd); TRIGLYCERIDE 120 mg/dL (<150); TROPONIN-I 0.27 ng/mL (<0.06); VLDL 24 mg/dL (<40)
[2019-01-28 03:48] LABS: SERUM ASSESSMENT Clear
--- NOTE | 2019-01-28 04:17 | NUR ---
ASSESSMENT DOCUMENTED.PT RESTING IN NO ACUTE DISTRESS AT THIS TIME.S/P CARDIAC MARIANNE W/INTERVENTIONS.RIGHT GROIN MYNX,W/O HEMATOMA OR ACTIVELY BLEEDING.PERIPHERAL PULSES 2+ IN ALL EXTREMITIES.UP INDEPENDENTLY TO THE BR,VOIDING ADEQUATELY.PT VERY ANXIOUS,ANXIETY CONTROLLED WITH MEDS.C/O MIGRANES HEADACHES THAT ARE CONTROLLED WITH PAIN MEDS.PT WANTS TO GO HOME HOME THIS AM.WILL CONT TO MONITOR PER POC.
[2019-01-28 04:45] VITALS: BP 137/92
[2019-01-28 07:00] VITALS: BP 151/90
[2019-01-28] MEDS ORDERED: EFFIENT10 MG PO (07:59)
[2019-01-28] MEDS ORDERED: CRESTOR40 MG PO (08:00)
[2019-01-28] MEDS ORDERED: ZETIA10 MG PO (08:00)
[2019-01-28 08:21] LABS: CALCIUM 8.9 mg/dL (8.5-10.1); CREATININE 1.4 mg/dL (0.7-1.3); POTASSIUM 3.3 mmol/L (3.5-5.1)
[2019-01-28 10:17] VITALS: BP 151/90
--- NOTE | 2019-01-28 12:38 | NUR ---
ASSUMED CARE OF PATIENT AT 0700. PATIENT IS FULLY CLOTHED AT SHIFT CHANGE REPORT AND ANXIOUS TO LEAVE. PATIENT DID LOWER HIS PANTS FOR US TO REVIEW HIS RIGHT GROIN SIDE WHICH WAS SOFT, WITHOUT EVIDENCE OF HEMATOMA OR EDEMA. DENIES PAIN AT THIS SITE. DENIES CHEST PAIN. PATIENT IS COOPERATIVE WITH PLAN OF CARE. ASSESSMENT COMPLETED. PATIENT WAS DISCHARGED AT 1100 AND DROVE HIMSELF HOME. IV AND TELE REMOVED. PATIENT STATES THAT HE FEELS BETTER THAN HE DID WHEN HE ARRIVED.
--- NOTE | 2019-01-30 15:50 | EKG ---
[address] [place] [address] ELECTROCARDIOGRAM REPORT Name: MINDI JONES Room #: 200-I DIS IN M.R.#: [id number] Admission: 01/27/19 Attend Phys: Benja Sheehan MD, Discharge: 01/28/19 Date of : 69 Report #: [id number] THIS REPORT FOR: //name// [facility] ED Test Date: 2019-01-27 Test Time: 11:19:54 Pat Name: MINDI JONES Department: Room: 200 Gender: M Molecular Physicist: RED : 1965 Requested By: Silverio Lincoln Order Number: [id number] MD: Rian Gardner Measurements Intervals [place] Rate: 64 P: 67 FL: 131 QRS: -37 QRSD: 113 T: 197 QT: 455 QTc: 470 Interpretive Statements Sinus rhythm Atrial premature complexes Probable left atrial enlargement LVH with repolarization abnormalities unchanged Baseline wander in lead(s) V3 Compared to ECG 12/04/2018 07:09:37 Electronically Signed On 01-30-2019 15:49:54 REAL ESTATE OFFICE MANAGER by Rian Gardner [email or web address] <ELECTRONICALLY SIGNED> By: Rian Gardner MD 01/30/19 1549 1119 1119 Rian Gardner MD /EPI
--- NOTE | 2019-01-30 15:51 | EKG ---
[place] [address] [address] [place] [address] ELECTROCARDIOGRAM REPORT Name: MINDI JONES Room #: 200-I [facility] IN M.R.#: [id number] Admission: 01/27/19 Attend Phys: Benja Sheehan MD, Discharge: 01/28/19 Date of : 69 Report #: [id number] THIS REPORT FOR: //name// [facility] ED Test Date: 2019-01-27 Test Time: 12:20:42 Pat Name: MINDI JONES Department: Room: 200 Gender: M Substance Abuse Services Director: RED : 1965 Requested By: Silverio Lincoln Order Number: [id number] MD: Rian Gardner Measurements Intervals [place] Rate: 66 P: 48 [place]: 126 QRS: -40 QRSD: 103 T: 167 QT: 465 QTc: 488 Interpretive Statements Sinus rhythm Ventricular premature complex LVH with secondary repolarization abnormality Electronically Signed On 01-30-2019 15:50:57 CLOTHES PRESSER by Rian Gardner [email or web address] <ELECTRONICALLY SIGNED> By: Rian Gardner MD 01/30/19 1550 1220 1220 MD ARTEMIO Diaz
--- NOTE | 2019-01-30 16:01 | EKG ---
[place] [address] [facility] [place] [address] ELECTROCARDIOGRAM REPORT Name: MINDI JONES Room #: 200-I DIS IN M.R.#: [id number] Admission: 01/27/19 Attend Phys: Benja Sheehan MD, Discharge: 01/28/19 Date of : 69 Report #: [id number] THIS REPORT FOR: //name// [facility] Test Date: 2019-01-28 Test Time: 07:03:51 Pat Name: MINDI JONES Department: Room: 200 I Gender: M Obstetrics Scrub Nurse: Zuhair LEIVA : 1965 Requested By: Benja Sheehan Order Number: [id number] MD: Rian Gardner Measurements Intervals [place] Rate: 52 P: 71 VA: 133 QRS: -44 QRSD: 111 T: 256 QT: 465 QTc: 433 Interpretive Statements Sinus rhythm Atrial premature complexes Probable left atrial enlargement Left anterior fascicular block LVH with secondary repolarization abnormality Anterior Q waves, possibly due to LVH Compared to ECG 12/04/2018 07:09:37 Electronically Signed On 01-30-2019 16:00:39 [employer]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
--- NOTE | 2019-02-01 13:23 | CATHLAB ---
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 A PINNACLE 6FR Sheath #[id number] sheath was inserted into the RFA^. Coronary angiography was performed using coronary diagnostic catheters. The right coronary system was accessed and visualized with a JR4 catheter. The left coronary system was accessed and visualized with a JL4 catheter. The left ventricle was accessed and visualized with a PIGTAIL catheter. Left ventriculogram was performed in 30 degree projection. Closure device was deployed with a 6 Fr MYNXGRIP 6/7F #[id number]. The patient tolerated the procedure well and there were no complications associated with the procedure. There was no hematoma. Intraoperative Conscious Sedation Sedation start time: 15.25 Case end Time: 16.26 Fentanyl 100 mcg Versed 1 mg Fluoro Time: 8.20 minutes Dose: DAP 44388.00 cGycm2 1726 mGy Contrast Type and Amount: Visipaque 190 ml Hemodynamics [facility] [address] [place] [address] INVASIVE PROCEDURE REPORT Name: ROBERT,MINDI Room #: 200-I [facility] IN M.R.#: [id number] Admission: 01/27/19 Attend Phys: Benja Sheehan, Discharge: 01/28/19 Date of : 69 Report #: [id number] The aortic pressure is 169/116 mmHg with a mean of 127 mmHg. The left ventricular pressure is 172/26 mmHg with a mean of mmHg. The left ventricular end diastolic pressure is 45 mmHg. PCI Technique Lesion Percutaneous coronary intervention was performed on the Unspecified. A LAUNCHER 6FR EBU 3.5 #[id number] Guide Catheter was used to engage the ostium. A Luge Wire .014 x 182CM #[id number] Interventional Guidewire was used to cross the lesion. BALLOON DILATION A Balloon catheter Sprinter OTW 2.5 x 12 #[id number] was inserted and inflated up to 14.00atm for 27seconds. STENT DEPLOYMENT A drug-eluting stent XIENCE DEREK RX 2.75 X 12 #[id number] was inserted and inflated up to 14.00atm for 24seconds. Additional Inflation: 18.00atm for 13seconds. Conclusion #1 successful PTCA stent of a proximal mid 80% cleft lesion in the LAD to 0% with placement of a 2.75 x 12 Derek medicated stent 2.9 mm 0% residual diffuse distal disease in the LAD. This stent was placed proximal to a previously placed stent #2 left main long mild irregularities giving rise to the LAD and circumflex #3 circumflex OM with mild to moderate disease nondominant system. No occlusive disease. Proximal circumflex stent had mild in-stent restenosis previously placed. #4 large dominant ectatic right coronary artery with mild to moderate irregularities 3040% proximal mid vessel diffuse distal disease Recommendations and plan: Continue aggressive risk factor modification. Dual antiplatelet therapy to be initiated at least one year. Transfer to CCU follow post stent protocol. <ELECTRONICALLY SIGNED> By: Benja Sheehan MD, FACC 02/01/19 1322 21 21 Benja Sheehan MD, FACC /INF
== END 2019-01-28 11:32 | disposition home or self-care (01) | DRG 246 ==
LOC: ER 11:18 → 2N 14:35
PROVIDERS: Emergency Medicine; Nurse Practitioner Adult Health; ADMIT Internal Medicine Cardiovascular Disease
PROC: 4A023N7 Measurement of Cardiac Sampling and Pressure, Left Heart, Percutaneous Approach (ICD-10-PCS; principal; 2019-01-27)
PROC: B211YZZ Fluoroscopy of Multiple Coronary Arteries using Other Contrast (ICD-10-PCS; principal; 2019-01-27)
PROC: B215YZZ Fluoroscopy of Left Heart using Other Contrast (ICD-10-PCS; principal; 2019-01-27)
PROC: 027034Z Dilation of Coronary Artery, One Artery with Drug-eluting Intraluminal Device, Percutaneous Approach (ICD-10-PCS; principal; 2019-01-27)
DX: I25.110 Atherosclerotic heart disease of native coronary artery with unstable angina pectoris (principal); I50.43 Acute on chronic combined systolic (congestive) and diastolic (congestive) heart failure; I42.9 Cardiomyopathy, unspecified; E78.00 Pure hypercholesterolemia, unspecified; F17.210 Nicotine dependence, cigarettes, uncomplicated; G43.909 Migraine, unspecified, not intractable, without status migrainosus; E78.5 Hyperlipidemia, unspecified; Z79.899 Other long term (current) drug therapy; Z79.82 Long term (current) use of aspirin; Z95.5 Presence of coronary angioplasty implant and graft; Z86.73 Personal history of transient ischemic attack (TIA), and cerebral infarction without residual deficits; Z60.2 Problems related to living alone; Z82.49 Family history of ischemic heart disease and other diseases of the circulatory system; I11.0 Hypertensive heart disease with heart failure
CPT/HCPCS: 10081

== ENCOUNTER 2019-03-14 10:29 | Inpatient (IN) | payer OTHER ==
[~2019-03-14] VITALS: Ht 152.4 cm; Wt 68.0 kg
[2019-03-14] VITALS (7 sets, daily range): BP systolic 150–198; BP diastolic 84–146
--- NOTE | ~2019-03-14 | HC ---
[facility] [place] [address] CONSULTATION Name: MINDI JONES Room #: 363-P ADM IN M.R.#: [id number] Admission: 03/14/19 Attend Phys: Jacob Sow MD Discharge: Date of : 69 Report #: [id number] THIS REPORT FOR: cc: Jacob Sow MD, David W. MD Khosla,Rosendo Crenshaw MD ~ THIS REPORT FOR: //name// CC: Jacob Pritchett DATE OF SERVICE: 03/14/2019 HISTORY OF PRESENT ILLNESS: This is a 53-year-old male patient who was evaluated by me for aggravation of his stroke. I saw him in the Emergency Room and subsequently reviewed all his records in the computer. It would look like this patient had been seen by Dr. Arrieta and Dr. Hinojosa for neurological consultation in the past. The patient has a prior history of stroke on the left side. He indicated on his both admission that his weakness became worse. His hypertension was uncontrolled that time and it is uncontrolled now. He was smoking that time and he continued to smoke. He had a metal in his job, but he had MRIs in 2016 without any problem. REVIEW OF SYSTEMS: Indicate that he had a stroke and he has been admitted with same kind of symptoms in the past. I reviewed all those records and at one time, he had a CT angiogram and it showed only mild disease. His carotid has demonstrated confusing results. He has coronary artery disease and he continued to smoke. He has a facial bone fracture in the past. This was his relevant 14-point review of system. PAST MEDICAL HISTORY: Positive for stroke, but he has been admitted with similar symptoms in the past and the workup has been unremarkable. FAMILY HISTORY: Noncontributory. SOCIAL HISTORY: He continued to smoke. PHYSICAL EXAMINATION: Difficult to carry out. His speech is slurred and he is not able to provide clear history because of that speech issues. He knows what month it is. His speech is slurred. He does have a slight facial droop on the left side. He is weak on the left side. This is his baseline. He can appreciate the touch there. His reflexes does look hyper on the left side. I could not look at the fundus. There is no carotid bruit. There is no meningeal sign. Cardiac examination is unremarkable. Respiratory examination shows no respiratory difficulty. Blood pressure is 185/146, but that may be wrong because prior to that, it was 198/97, respiration is 20, pulse is 53, [facility] [address] [place] [address] CONSULTATION Name: MINDI JONES Room #: 363-P [facility]#: [id number] Admission: 03/14/19 Attend Phys: Jacob Sow MD Discharge: Date of : 69 Report #: [id number] temperature is 97.1. He did have a CT scan of the head, which showed no acute changes. LABORATORY DATA: Indicated normal white count, but GFR is also 79. CT is as described above. IMPRESSION AND PLAN: Aggravation of preexisting neurological deficit. The patient has been admitted with similar symptoms in the past. We will repeat the MRI, but I will suggest concentrating on treating his blood pressure aggressively and working up for his bradycardia. If acute stroke is demonstrated, then we will do further workup in that regard, but otherwise he had a neurological workup multiple times in the past and we will hold it further. I discussed all of it with the patient and he wants to follow that plan. Thank you very much for this referral. By: 1432 2324 Rosendo Pritchett MD /nt
--- NOTE | ~2019-03-14 | EKG ---
[facility] [place] [address] ELECTROCARDIOGRAM REPORT Name: MINDI JONES Room #: PRE M.R.#: [id number] Admission: Attend Phys: Discharge: Date of : 69 Report #: [id number] THIS REPORT FOR: cc: Jacob Sow MD, David W. 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 Tender: CHANEL : 1965 Requested By: Gerson Harvey Order Number: [id number] MD: Measurements Intervals [place] Rate: 51 P: 21 IL: 148 QRS: -38 QRSD: 110 T: 198 QT: 453 QTc: 418 Interpretive Statements Sinus rhythm Multiple premature complexes, vent & supraven LVH with IVCD, LAD and secondary repol abnrm Baseline wander in lead(s) V4 Compared to ECG 01/28/2019 07:03:51 Intraventricular conduction delay now present Atrial premature complex(es) no longer present Left anterior fascicular block no longer present Q waves no longer present [email or web address] By: 1049 48 Epiphany [place], [place] /EPI
[~2019-03-14 10:29] MED LIST changes: +CRESTOR40 MG PO; +EFFIENT10 MG PO; +ZETIA10 MG PO
[2019-03-14 11:03] LABS: BASOPHILS 0.5 % (0.0-2.0); EOSINOPHILS 4.3 % (0.0-3.0); HEMATOCRIT 39.1 % (42.0-52.0); LYMPHOCYTES 35.9 % (24.0-44.0); MCH 28.2 pg (26.0-34.0); MCHC 33.3 g/dL (28.0-37.0); MCV 84.7 fL (80.0-100.0); MONOCYTES 6.2 % (1.0-8.0); PLATELET COUNT 262 thou/uL (150-400); POLYS 53.1 % (36.0-66.0); RBC 4.62 mil/uL (4.50-6.00); RDW 14.8 % (10.5-14.5); WBC 7.5 thou/uL (4.0-11.0)
[2019-03-14 11:09] LABS: ANION GAP 11 mmol/L (7-16); BUN 20 mg/dL (7-18); CHLORIDE 104 mmol/L (98-107); CO2 25 mmol/L (21-32); GLUCOSE 82 mg/dL (74-106); POTASSIUM 3.8 mmol/L (3.5-5.1); SODIUM 140 mmol/L (136-145)
[2019-03-14 11:11] LABS: APTT 34.9 Seconds (24.5-32.8); PROTIME 10.1 Seconds (9.3-11.4)
[2019-03-14 11:19] LABS: ALBUMIN 3.7 g/dL (3.4-5.0); SGOT 17 U/L (15-37); SGPT 21 U/L (30-65); TOTAL BILIRUBIN 0.3 mg/dL (<0.1-1.0); TOTAL PROTEIN 7.6 g/dL (6.4-8.2); TROPONIN-I <0.06 ng/mL (<0.06)
[2019-03-15 04:31] VITALS: BP 132/79
--- NOTE | 2019-03-15 06:51 | NUR ---
ASSUMED CARE AT 1900. PT DENIED PAIN OR NAUSEA. BP SLIGHTLY IMPROVED AFTER RECEIVING BP MEDS AND TAKING A SHOWER; DENIED LIGHTHEADEDNESS OR BLURRED VISION R/T HTN. PT HAS BEEN CURTIS IN 40-50'S OVERNIGHT. THIS AM PT HAS BEEN DROPPING INTO THE 30'S REGULARLY; DENIES SYMPTOMS. NIH WAS NORMAL, WITH ONLY A SLIGHTLY REDUCED FUEL CELL BUILDER IN THE LEFT HAND, STILL C/O WEAKNESS IN THAT HAND WELL. EDUCATED ABOUT IMPORTANCE OF TAKING BP MEDS. NO OTHER CONCERNS, WILL CONTINUE TO MONITOR.
[2019-03-15 07:24] VITALS: BP 158/83
--- NOTE | 2019-03-15 11:39 | NUR ---
ORDERS RECEIVED FOR EVAL AND TREAT. SPOKE WITH Pt WHO STATES HIS ONLY DEFICITS ARE WITH HIS LT ARM. STATES HE IS GETTING UP WITHOUT DIFFICULTY AND DID FINE WITH O.T. Pt DECLINING FORMAL P.T. EVAL. PER O.T. EVAL, Pt WAS INDEPENDENT WITH MOBILITY
--- NOTE | 2019-03-15 12:32 | 2DMMODE ---
[facility] [place] [address] 2 D/M-MODE ECHOCARDIOGRAM Name: MINDI JONES Room #: 363-P ADM IN M.R.#: [id number] Admission: 03/14/19 Attend Phys: Jacob Sow MD Discharge: Date of : 69 Report #: [id number] THIS REPORT FOR: cc: Jacob Sow MD, David W. MD Lammoglia, Francisco J. MD ~ THIS REPORT FOR: //name// APPROVED REPORT Study performed: 03/15/2019 11:49:37 EXAM: Comprehensive 2D, Doppler, and color-flow Echocardiogram Patient Location: Echo lab Room #: 363 Status: routine BSA: 1.65 HR: 43 bpm BP: 158/83 mmHg Rhythm: Bradycardia Other Information Study Quality: Good Indications Congestive Heart Failure Bradycardia CAD Cardiomyopathy Hypertension/HDD 2D Dimensions RVDd: 37.58 mm IVSd: 13.91 (7-11mm) LVOT Diam: 22.64 (18-24mm) LVDd: 61.66 mm PWd: 15.06 (7-11mm) Ascending Ao: 33.82 (22-36mm) LVDs: 49.25 (25-40mm) Aortic Root: 31.86 mm IVC: 15.00 mm Volumes Left Atrial Volume (Systole) Single Plane 4CH: 66.25 mL Single Plane 2CH: 83.59 mL LA ESV Index: 52.00 mL/m2 [facility] [address] [place] [address] 2 D/M-MODE ECHOCARDIOGRAM Name: MINDI JONES Room #: 363-P ADM IN M.R.#: [id number] Admission: 03/14/19 Attend Phys: Gale Johnson Discharge: Date of : 69 Report #: [id number] Aortic Valve AoV Peak Rio.: 1.75 m/s AO Peak Gr.: 12.26 mmHg LVOT Max P.85 mmHg LVOT Max V: 0.98 m/s TRICIA Vmax: 2.25 cm2 Mitral Valve E/A Ratio: 1.1 MV Decel. Time: 284.72 ms MV E Max Rio.: 0.90 m/s MV A Rio.: 0.79 m/s MV PHT: 82.57 ms IVRT: 138.41 ms Pulmonary Valve PV Peak Rio.: 0.99 m/s PV Peak Gr.: 3.98 mmHg Pulmonary Vein P Vein S: 0.42 m/s P Vein A: 0.23 m/s P Vein D: 0.50 m/s P Vein A Dur.: 96.9 msec P Vein S/D Ratio: 0.84 Left Ventricle Left ventricle is dilated. There is global hypokinesis of the left ventricle. Mild concentric left ventricular hypertrophy. Left ventricular ejection fraction is moderate to severely decreased. LVEF is 35%. Diastolic function shows a restrictive pattern. Right Ventricle The right ventricle is normal size. The right ventricular systolic function is normal. Atria Left atrium is dilated. Right atrium is at the upper limits of normal. Aortic Valve The aortic valve is normal in structure. No aortic regurgitation is present. There is no aortic valvular stenosis. Mitral Valve The mitral valve is normal in structure. There is no mitral valve regurgitation noted. No evidence of mitral valve stenosis. Tricuspid Valve [facility] [address] [place] [address] 2 D/M-MODE ECHOCARDIOGRAM Name: MINDI JONES Room #: 363-P ADM IN M.R.#: [id number] Admission: 03/14/19 Attend Phys: Gale Johnson Discharge: Date of : 69 Report #: [id number] The tricuspid valve is normal in structure. There is no tricuspid valve regurgitation noted. Pulmonic Valve The pulmonary valve is normal in structure. There is no pulmonic valvular regurgitation. Great Vessels The aortic root is normal in size. IVC is normal in size and collapses >50% with inspiration. Pericardium There is no pericardial effusion. <Conclusion> Left ventricle is dilated. Mild concentric left ventricular hypertrophy. LVEF is 35%. There is global hypokinesis of the left ventricle. Left atrium is dilated. The aortic valve is normal in structure. The mitral valve is normal in structure. The tricuspid valve is normal in structure. The pulmonary valve is normal in structure. There is no pericardial effusion. <ELECTRONICALLY SIGNED> By: Adam Padilla MD 03/15/19 1231 1231 1231 Adam Padilla MD /INF
[2019-03-15] MEDS ORDERED: IMDUR 60 MG TAB60 M1 PO (13:21)
--- NOTE | 2019-03-15 13:21 | H ---
[facility] [place] [address] HISTORY AND PHYSICAL Name: MINDI JONES Room #: 363-P ADM IN M.R.#: [id number] Admission: 03/14/19 Attend Phys: Jacob Sow MD Discharge: Date of : 69 Report #: [id number] THIS REPORT FOR: //name// CC: Jacob Pritchett DATE OF SERVICE: 03/14/2019 CHIEF COMPLAINT: Weakness. HISTORY OF PRESENT ILLNESS: The patient is a 53-year-old gentleman who presented to the Emergency Room with left-sided weakness. He also noted slurred speech and facial droop, which he says began yesterday morning. He said symptoms did not impact his function yesterday, so he had a normal day, went to bed last night as usual and then when he awoke this morning, he felt his mouth was numb and tingling. He has had it similar to symptoms he had related to a stroke several years ago. PAST MEDICAL HISTORY: Hypertension, coronary artery disease with recent PTCA and stent, migraines. I believe he has had a facial bone fracture with surgical repair in the past and chronic pain. PAST SURGICAL HISTORY: As above. FAMILY HISTORY: Unknown. SOCIAL HISTORY: Some smoking. Denies chronic alcohol use. ALLERGIES: None. MEDICATIONS: Aspirin 325, Zetia, Crestor, Effient, Zoloft and chlorthalidone, amiodarone, Aldactone, Benicar, Coreg, and Imdur. 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 He has a mild headache as usual. Otherwise, no chest pain, shortness of breath, abdominal pain, nausea, vomiting, diarrhea, constipation, dysuria, syncope. OBJECTIVE: VITAL SIGNS: Temperature 36.2, pulse 53, respirations 20, blood pressure 185/146, O2 sat 100% on room air. GENERAL: He is awake and alert, no distress. HEAD AND NECK: Unremarkable. LUNGS: Clear with no wheezing. HEART: Regular. ABDOMEN: Soft, normoactive bowel sounds. [facility] [address] [place] [address] HISTORY AND PHYSICAL Name: MINDI JONES Room #: 363-P [facility] IN M.R.#: [id number] Admission: 03/14/19 Attend Phys: Jacob Sow MD Discharge: Date of : 69 Report #: [id number] EXTREMITIES: No edema. NEUROLOGIC: Facial features and grimace seem intact. His speech was clear, although maybe just minimally slurred with enunciation. His left hand casing wringer operator was slightly weaker, but he had normal dexterity and was actually using his left hand to eat. Gait was not tested as he is confined to the cardiac monitors in the ER. LABORATORY DATA: Unremarkable. CT head and chest reviewed. ASSESSMENT: 1. Acute stroke. 2. Mild dysarthria. 3. Mild left hemiparesis. 4. Hypertension. 5. Coronary artery disease. PLAN: To be admitted to a telemetry unit with evaluation from the Neurology team and Cardiology. We will have to try to optimize his medications, but in past admissions and office visits, he has been noncompliant with his medications and we will try to reeducate him on the need. <ELECTRONICALLY SIGNED> By: Jacob Sow MD 03/15/19 1321 1400 1409 Jacob Sow MD /nt
[2019-03-15] MEDS ORDERED: BENICAR40 MG PO (13:22)
[2019-03-15] MEDS ORDERED: ALDACTONE50 MG PO (13:22)
[2019-03-15] MEDS ORDERED: CHLORTHALIDONE25 MG PO (13:22)
[2019-03-15] MEDS ORDERED: AMLODIPINE BESY10 MG PO (13:22)
--- NOTE | 2019-03-15 13:41 | NUR ---
0800 PT HEART RATE IN THE HIGH 30'S AND LOW 40's, PT ASYMPTOMATIC. 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 MEDICATIONS UPDATED. 1330 DR LAWS AWARE. HE IS OKAY WITH PT GOING HOME LONG ASTROCHEMIST IS WELL. 1335 LOBO PAGED, WAITING FOR WHIT TO SEE PT. PT UPDATED
[2019-03-15 15:33] VITALS: BP 158/77
[2019-03-15 16:04] VITALS: BP 158/77
--- NOTE | 2019-03-15 16:22 | NUR ---
2717 Dr. Cardona is okay with pt being d/c and seeing pt in a week. Dr. Sow paged and prder put in for discharge. Diacharge instructions and education, presription scripts and appointment with pig furnace operator given to patient.
--- NOTE | 2019-03-15 16:38 | NUR ---
6800 pt d/c hussain taken down via wheelchar to car
== END 2019-03-15 16:14 | disposition home or self-care (01) | DRG 69 ==
LOC: ER 10:29 → 3W 12:30 → EROBS 12:30 → 3W 13:30
PROVIDERS: Emergency Medicine; ADMIT Internal Medicine Geriatric Medicine
DX: G45.9 Transient cerebral ischemic attack, unspecified (principal); I69.954 Hemiplegia and hemiparesis following unspecified cerebrovascular disease affecting left non-dominant side; I10 Essential (primary) hypertension; G43.909 Migraine, unspecified, not intractable, without status migrainosus; R47.1 Dysarthria and anarthria; I25.10 Atherosclerotic heart disease of native coronary artery without angina pectoris; I16.0 Hypertensive urgency; E78.00 Pure hypercholesterolemia, unspecified; R00.1 Bradycardia, unspecified; Z71.6 Tobacco abuse counseling; I69.922 Dysarthria following unspecified cerebrovascular disease; Z95.5 Presence of coronary angioplasty implant and graft; Z79.82 Long term (current) use of aspirin; Z79.899 Other long term (current) drug therapy; Z82.49 Family history of ischemic heart disease and other diseases of the circulatory system
CPT/HCPCS: 10879